=== PATIENT | male | born 1965 | race Caucasian/White ===

== ENCOUNTER → 2017-04-14 | Outpatient (CLI) | payer BC | LOC: OD 09:05 | PROVIDERS: ATTEND Student in an Organized Health Care Education/Training Program | DX: R63.4 Abnormal weight loss (principal) | CPT/HCPCS: 71020 ==

== ENCOUNTER 2017-05-11 08:42 | Day surgery (SDC) | payer BC ==
[~2017-05-11 08:42] MED LIST: PROPOFOL INJ 200 MG/20 ML VIAL IV ONE
[2017-05-11 10:03] VITALS: BP 114/69
--- NOTE | 2017-05-11 12:40 | Operative Report ---
Operative Report DATE OF SURGERY: 05/11/17 Operative Report: The risks, benefits and alternatives of the procedure including risks of bleeding, perforation requiring surgery are explained to the patient detail and informed consent was obtained. Patient was placed in the left, lateral decubital position. Timeout was called. Propofol medications administered. A rectal examination was done which did not reveal any masses, tears or fissures. An Olympus video scope was inserted in the patient's rectum. Scope was then gradually advanced all the way to the cecum. The cecum was identified by the usual anatomical landmarks including the ileocecal valve as well as the appendiceal office. Photodocumentation is obtained. Prep is good. The scope was then sequentially pulled back via the rest segments of the colon including the ascending colon, hepatic flexure, transverse colon, splenic flexure, descending colon and finally to the rectosigmoid portions of the colon. Retroflexion maneuver was performed. PREOPERATIVE DIAGNOSIS: Colorectal cancer screening POSTOPERATIVE DIAGNOSIS: Right-sided inflammation status post biopsy. Colon polyp, descending colon/sigmoid area status post snare polypectomy for removal; and retrieved. OPERATION: Colonoscopy with snare polypectomy. Colonoscopy with biopsy SURGEON: LEIGHANN GANDHI ANESTHESIA: LMAC TISSUE REMOVED OR ALTERED: Right side colon Specimens obtained to rule out microscopic, collagenous, lymphocytic colitis. Polyp removed and retrieved. COMPLICATIONS: None. ESTIMATED BLOOD LOSS: None. INTRAOPERATIVE FINDINGS: As described above. No masses, AVMs, diverticulosis noted. Mild internal hemorrhoids PROCEDURE: Patient tolerated the procedure well. No immediate postprocedure complications are noted. Patient discharged in good condition. Discharge date 05/11/2017. Discharge diet: Regular. Discharge activity: Regular. 2-3 week follow-up to discuss findings. 5 year surveillance colonoscopy. Patient is instructed to call the office or proceed to the emergency room should there be any further problems or questions. We will wait on biopsies.
== END 2017-05-11 09:55 | disposition home or self-care (01) ==
LOC: END 08:42
PROVIDERS: ATTEND Internal Medicine Gastroenterology
PROC: 0DBF8ZX Excision of Right Large Intestine, Via Natural or Artificial Opening Endoscopic, Diagnostic (ICD-10-PCS; principal; 2017-05-11 10:00)
PROC: 0DBN8ZX Excision of Sigmoid Colon, Via Natural or Artificial Opening Endoscopic, Diagnostic (ICD-10-PCS; 2017-05-11 10:00)
DX: Z12.11 Encounter for screening for malignant neoplasm of colon (principal); K63.5 Polyp of colon; K52.9 Noninfective gastroenteritis and colitis, unspecified; E78.5 Hyperlipidemia, unspecified; K21.9 Gastro-esophageal reflux disease without esophagitis; F10.21 Alcohol dependence, in remission; Z79.899 Other long term (current) drug therapy
CPT/HCPCS: 45380; 45385; 88305 ×2; J2704; 810

== ENCOUNTER → 2017-05-12 | Outpatient (CLI) | payer BC ==
--- NOTE | 2017-05-13 14:30 | RADIOLOGY REPORT (SQ) ---
EXAM DESCRIPTION: NM THYROID SCAN AND UPTAKE COMPLETED DATE/TIME: 05/13/2017 2:14 pm REASON FOR STUDY: THYROID NODULE COMPARISON: None. RADIONUCLIDE AND DOSE: 315 microcuries I-123. The route of agent administration: Intravenous ADDITIONAL DRUGS AND DOSES: None. TECHNIQUE: Iodine uptake was measured at 4 and 24 hours. Images of the neck were acquired. LIMITATIONS: None. FINDINGS: 4 HOUR UPTAKE RADIO-IODINE: 3.5%. Normal Range of 5-20% [facility] Normal Range of 5-15% [facility] Normal Range of 5-15% [facility] 24 HOUR UPTAKE RADIO-IODINE: 6.0%. Normal Range of 7-35% [facility] Normal Range of 8-35% [facility] Normal Range of 15-30% [facility] SCAN: There is heterogeneous uptake seen throughout the thyroid gland. OTHER: No other significant finding. IMPRESSION: Uptake values consistent hypothyroidism there is heterogeneous distribution of radiotrac er throughout the thyroid gland. TECHNICAL DOCUMENTATION: JOB ID: [id number] [employer]- All Rights Reserved
== END ==
LOC: RAD 05-04 14:27
PROVIDERS: ATTEND Student in an Organized Health Care Education/Training Program
DX: E04.1 Nontoxic single thyroid nodule (principal)
CPT/HCPCS: 78014; A9516

== ENCOUNTER 2018-02-02 09:26 | Emergency (ER) | payer BC, OTHER ==
[2018-02-02] MEDS ORDERED: NORMAL SALINE 1000 ML 1,000 ML IV ONE (09:44)
[2018-02-02] MEDS ORDERED: LORAZEPAM 1 MG TABLET PO ONE (09:45)
--- NOTE | 2018-02-02 09:49 | ER Document Report ---
ED Medical Screen (RME) - General Chief Complaint: Alcohol Withdrawl Stated Complaint: WEAKNESS Time Seen by Provider: 02/02/18 09:43 Notes: RME DISCLOSURE I have seen this patient as part of a Rapid Medical Evaluation and, if applicable, placed any initially appropriate orders. The patient will be seen and fully evaluated, including a full history and physical exam, by a provider ( in Main ED or Fast Track) when a room becomes available. 53-year-old male here with complaints of generalized weakness, multiple falls, and alcohol abuse ongoing for the past "many months". He has also had some seizures over the past 1 year but there have been no seizures in the past few months. He is here because "my ex- made me come here". There is no other specific reason he decided to come today. TRAVEL OUTSIDE OF THE [place] IN LAST 30 DAYS: No - Related Data Allergies/Adverse Reactions: No Known Allergies Allergy (Verified 02/02/18 09:27) Past Medical History - Past Medical History Cardiac Medical History: Denies: Hx Coronary Artery Disease, Hx Heart Attack, Hx Hypertension Pulmonary Medical History: Denies: Hx Asthma, Hx Bronchitis, Hx COPD, Hx Pneumonia Neurological Medical History: Reports: Hx Seizures - 2 YEARS AGO/D/T RUNNING OUT OF PTSD MEDS. Denies: Hx Cerebrovascular Accident Endocrine Medical History: Reports: Hx Hypothyroidism GI Medical History: Denies: Hx Hepatitis, Hx Hiatal Hernia, Hx Ulcer Musculoskeltal Medical History: Denies Hx Arthritis Psychiatric Medical History: Reports: Hx Post Traumatic Stress Disorder Infectious Medical History: Denies: Hx Hepatitis Past Surgical History: Reports: Hx Inguinal Hernia. Denies: Hx Open Heart Surgery, Hx Pacemaker - Immunizations Hx Diphtheria, Pertussis, Tetanus Vaccination: Yes Physical Exam - Vital signs Vitals: Temp Pulse Resp BP Pulse Ox 98.5 F 80 18 123/89 H 98 02/02/18 09:31 02/02/18 09:31 02/02/18 09:31 02/02/18 09:31 02/02/18 09:31 Course - Vital Signs Vital signs: Temp Pulse Resp BP Pulse Ox 98.5 F 80 18 123/89 H 98 02/02/18 09:31 02/02/18 09:31 02/02/18 09:31 02/02/18 09:31 02/02/18 09:31
[2018-02-02 10:21] LABS: HEMATOCRIT 50.7 % (37.9-51.0); HEMOGLOBIN 17.6 g/dL (13.5-17.0); MEAN CORPUSCULAR HEMOGLOBIN 38.7 pg (27.0-33.4); MEAN CORPUSCULAR HGB CONC 34.8 g/dL (32.0-36.0); PLATELET COUNT 219 10^3/uL (150-450); RED BLOOD COUNT 4.55 10^6/uL (4.35-5.55); RED CELL DISTRIBUTION WIDTH 13.7 % (11.5-14.0); WHITE BLOOD COUNT 6.4 10^3/uL (4.0-10.5)
[2018-02-02 10:30] LABS: MEAN CORPUSCULAR VOLUME 111 fl (80-97)
--- NOTE | 2018-02-02 10:46 | ER Document Report ---
ED General - General Chief Complaint: Alcohol Withdrawl Stated Complaint: WEAKNESS Time Seen by Provider: 02/02/18 09:43 Information source: Patient, Relative - "Estranged ex-" TRAVEL OUTSIDE OF THE [place] IN LAST 30 DAYS: No - HPI Patient complains to provider of: weakness Onset: Other - months Onset/Duration: Gradual, Worse Quality of pain: No pain Associated symptoms: None Exacerbated by: Denies Relieved by: Denies Similar symptoms previously: Yes Recently seen / treated by doctor: Yes - september-tested for ebstein johnson virus Notes: 53-year-old male presents to the emergency department being brought in by his estranged . Drinks vodka daily his last drink was this morning at 4 AM. When asked when he started drinking he stated "how long it by then alive". Patient has been through inpatient detox twice and has been sober approximately 3 months at a clip. states he last went January 2017 to inpatient rehab. 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 states he does not have a PMD as he is uninsured at this time- he canceled his insurance in October. He could go to the [facility], he just has not done the paperwork yet. Patient states that he has been increasingly weak over the last few months. He states today he fell and hit his TV. No head injury or loss of consciousness. - Related Data Allergies/Adverse Reactions: No Known Allergies Allergy (Verified 02/02/18 09:27) Past Medical History - General Information source: Patient, Relative - - Social History Smoking Status: Current Every Day Smoker Chew tobacco use (# tins/day): No Frequency of alcohol use: Heavy Drug Abuse: None Lives with: Alone Family History: Reviewed & Not Pertinent Patient has suicidal ideation: No Patient has homicidal ideation: No - Past Medical History Cardiac Medical History: Reports: None Denies: Hx Coronary Artery Disease, Hx Heart Attack, Hx Hypertension Pulmonary Medical History: Reports: None Denies: Hx Asthma, Hx Bronchitis, Hx COPD, Hx Pneumonia EENT Medical History: Reports: None Neurological Medical History: Reports: None, Hx Seizures - 2 YEARS AGO/D/T RUNNING OUT OF PTSD MEDS. Denies: Hx Cerebrovascular Accident Endocrine Medical History: Reports: None, Hx Hypothyroidism Renal/ Medical History: Reports: None. Denies: Hx Peritoneal Dialysis Malignancy Medical History: Reports None GI Medical History: Reports: None. Denies: Hx Hepatitis, Hx Hiatal Hernia, Hx Ulcer Musculoskeltal Medical History: Reports None, Denies Hx Arthritis Skin Medical History: Reports None Psychiatric Medical History: Reports: Hx Post Traumatic Stress Disorder Infectious Medical History: Denies: Hx Hepatitis Past Surgical History: Reports: Hx Inguinal Hernia. Denies: Hx Open Heart Surgery, Hx Pacemaker - Immunizations Hx Diphtheria, Pertussis, Tetanus Vaccination: Yes Review of Systems - Review of Systems Constitutional: No symptoms reported EENT: No symptoms reported Cardiovascular: No symptoms reported Respiratory: No symptoms reported Gastrointestinal: No symptoms reported Genitourinary: No symptoms reported Male Genitourinary: No symptoms reported Skin: No symptoms reported Hematologic/Lymphatic: No symptoms reported Neurological/Psychological: No symptoms reported Physical Exam - Vital signs Vitals: Temp Pulse Resp BP Pulse Ox 98.5 F 80 18 123/89 H 98 02/02/18 09:31 02/02/18 09:31 02/02/18 09:31 02/02/18 09:31 02/02/18 09:31 - Notes Notes: PHYSICAL EXAMINATION: GENERAL: Disheveled, chronically ill-appearing, no acute distress. HEAD: Atraumatic, normocephalic. EYES: Pupils equal round and reactive to light, extraocular movements intact, sclera anicteric, conjunctiva are normal. ENT: Nares patent, oropharynx clear without exudates. Moist mucous membranes. NECK: Normal range of motion, supple without lymphadenopathy LUNGS: Breath sounds clear to auscultation bilaterally and equal. No wheezes rales or rhonchi. HEART: Regular rate and rhythm without murmurs ABDOMEN: Soft, nontender, nondistended abdomen. No guarding, no rebound. No masses appreciated. Ventral wall here hernia easily reducible Musculoskeletal: Normal range of motion, no pitting or edema. No cyanosis. NEUROLOGICAL: Cranial nerves grossly intact. Normal speech, normal gait. Normal sensory, motor exams PSYCH: Normal mood, normal affect. SKIN: Warm, Dry, normal turgor, no rashes or lesions noted. Course - Re-evaluation Re-evalutation: 02/02/18 10:52 I did talk to the patient extensively about his reasons for being here in the emergency department. I directly wanted to know if he was here for rehab or detox. Patient states "I am here to figure out why I am weak". He will not address whether he would like to go to detox or not. I did tell the patient since he has not stated that he wants detox I will not pursue that avenue with him any longer. I will do a full workup to try and determine why he is weak. He states that his drinking is "another problem in itself". His estranged was in the room for the entire discussion. She often had more information to offer to me than the patient himself. At one point after discussing the patient 's desire for detox, he stated "that was an uncomfortable conversation to have in front of my ". Did apologize. I stated since you called her to bring you to the emergency department and she was in the room engaging in our discussion and answering questions, I felt that it was appropriate to discuss detox in front of her. I did apologize to the patient and the patient's . The patient's went to me and stated it was fine. I did ask the patient if at this time he wanted his to leave the room so I could continue the conversation with him. At this point he change the subject, not answering my question at all and stating "I had a full bowl of spaghetti last night that I cooked myself". 02/02/18 13:53 Patient admits he has not been taking his thyroid medication. I did go over the ramifications of not taking her thyroid replacement including decreased mentation, decreased energy, constipation, low heart rate, and the importance of taking his thyroid medication. Patient states he does have the pills at home. I told him he needed to take them daily for 6 weeks and then have his thyroid level rechecked. Patient verbalized understanding. He again did not tell me he wanted detox. Patient was anxious to have everything removed including his IV in the monitoring engineer so he can be discharged home. 02/02/18 14:02 Labs- All tests 24 hr 02/02/18 02/02/18 02/02/18 10:02 10:02 10:02 WBC 6.4 RBC 4.55 Hgb 17.6 H Hct 50.7 MCV 111 H MCH 38.7 H MCHC 34.8 RDW 13.7 Plt Count 219 Total Counted 100 Seg Neutrophils % Not Reportable Seg Neuts % (Manual) 52 Lymphocytes % Not Reportable Lymphocytes % (Manual) 39 Atypical Lymphs % 2 Monocytes % Not Reportable Monocytes % (Manual) 4 Eosinophils % Not Reportable Eosinophils % (Manual) 1 Basophils % Not Reportable Basophils % (Manual) 2 Absolute Neutrophils Not Reportable Abs Neuts (Manual) 3.3 Absolute Lymphocytes Not Reportable Abs Lymphs (Manual) 2.6 Absolute Monocytes Not Reportable Abs Monocytes (Manual) 0.3 Absolute Eosinophils Not Reportable Absolute Eos (Manual) 0.1 Absolute Basophils Not Reportable Abs Basophils (Manual) 0.1 Toxic Granulation SLIGHT Platelet Comment ADEQUATE Macrocytosis 3+ Sodium Cancelled Potassium Cancelled Chloride Cancelled Carbon Dioxide Cancelled Anion Gap Cancelled BUN Cancelled Creatinine Cancelled Est GFR ( Amer) Cancelled Est GFR (Non-Af Amer) Cancelled Glucose Cancelled Calcium Cancelled Phosphorus Cancelled Magnesium Cancelled Total Bilirubin Cancelled Direct Bilirubin Cancelled Neonat Total Bilirubin Cancelled Neonat Direct Bilirubin Cancelled Neonat Indirect Bili Cancelled AST Cancelled ALT Cancelled Alkaline Phosphatase Cancelled Creatine Kinase CK-MB (CK-2) Troponin I Total Protein Cancelled Albumin Cancelled Lipase Cancelled TSH 02/02/18 02/02/18 02/02/18 11:27 11:27 11:27 WBC RBC Hgb Hct MCV MCH MCHC RDW Plt Count Total Counted Seg Neutrophils % Seg Neuts % (Manual) Lymphocytes % Lymphocytes % (Manual) Atypical Lymphs % Monocytes % Monocytes % (Manual) Eosinophils % Eosinophils % (Manual) Basophils % Basophils % (Manual) Absolute Neutrophils Abs Neuts (Manual) Absolute Lymphocytes Abs Lymphs (Manual) Absolute Monocytes Abs Monocytes (Manual) Absolute Eosinophils Absolute Eos (Manual) Absolute Basophils Abs Basophils (Manual) Toxic Granulation Platelet Comment Macrocytosis Sodium 146.1 H Potassium 4.3 Chloride 108 H Carbon Dioxide 26 Anion Gap 12 BUN 5 L Creatinine 0.66 Est GFR ( Amer) > 60 Est GFR (Non-Af Amer) > 60 Glucose 80 Calcium 9.0 Phosphorus 3.6 Magnesium 1.8 Total Bilirubin 0.3 Direct Bilirubin 0.2 Neonat Total Bilirubin Not Reportable Neonat Direct Bilirubin Not Reportable Neonat Indirect Bili Not Reportable AST 69 H ALT 50 Alkaline Phosphatase 51 Creatine Kinase 50 L CK-MB (CK-2) 0.67 Troponin I < 0.012 Total Protein 6.5 Albumin 4.2 Lipase 110.1 TSH 48.50 H - Vital Signs Vital signs: Temp Pulse Resp BP Pulse Ox 98.5 F 80 18 123/89 H 98 02/02/18 09:31 02/02/18 09:31 02/02/18 09:31 02/02/18 09:31 02/02/18 09:31 - Laboratory Result Diagrams: 02/02/18 10:02 02/02/18 11:27 Laboratory results interpreted by me: 02/02/18 02/02/18 02/02/18 10:02 11:27 11:27 Hgb 17.6 H MCV 111 H MCH 38.7 H Sodium 146.1 H Chloride 108 H BUN 5 L AST 69 H Creatine Kinase 50 L TSH 48.50 H - EKG Interpretation by Me EKG shows normal: Sinus rhythm Heart block present: 1st Degree Discharge - Discharge Clinical Impression: Hypothyroidism determined by thyroid function test Disposition: HOME, SELF-CARE Instructions: Chronic Alcoholism ([facility]), Hypothyroidism ([facility]) Additional Instructions: Follow up with your physician tomorrow for further care or return to the ED IMMEDIATELY if symptoms worsen or new concerns occur. If you cannot afford to follow up with your primary care physician a list of low cost clinics have been provided at the end of your discharge papers as well. Please take your levothyroxine for 6 weeks on a daily basis. At 6 weeks please go to your primary medical doctor and have your thyroid hormone blood levels rechecked. Referrals: [facility] [Provider Group] - Follow up as needed
[2018-02-02 10:48] LABS: ABSOLUTE LYMPHOCYTES# (MANUAL) 2.6 10^3/uL (0.5-4.7); ABSOLUTE MONOCYTES # (MANUAL) 0.3 10^3/uL (0.1-1.4); ABSOLUTE NEUTROPHILS# (MANUAL) 3.3 10^3/uL (1.7-8.2); BASOPHILS % (MANUAL) 2 % (0-2); EOSINOPHILS % (MANUAL) 1 % (0-6); LYMPHOCYTES % (MANUAL) 39 % (13-45); MONOCYTES % (MANUAL) 4 % (3-13); PLATELET COMMENT ADEQUATE; SEGMENTED NEUTROPHILS % (MAN) 52 % (42-78); TOTAL CELLS COUNTED 100; TOXIC GRANULATION SLIGHT
[2018-02-02] MEDS ORDERED: MULTIVITAMIN TABLET PO ONE (11:47)
[2018-02-02] MEDS ORDERED: THIAMINE HCL 100 MG TABLET PO ONE (11:47)
[2018-02-02] MEDS ORDERED: FOLIC ACID 1 MG TABLET PO ONE (11:47)
[2018-02-02 12:14] LABS: ALANINE AMINOTRANSFERASE 50 U/L (21-72); ALBUMIN 4.2 g/dL (3.5-5.0); ALKALINE PHOSPHATASE 51 U/L (38-126); ANION GAP 12 (5-19); ASPARTATE AMINO TRANSFERASE 69 U/L (17-59); BILIRUBIN,DIRECT 0.2 mg/dL (0.0-0.4); BILIRUBIN,TOTAL 0.3 mg/dL (0.2-1.3); BLOOD UREA NITROGEN 5 mg/dL (7-20); CARBON DIOXIDE 26 mmol/L (22-30); CHLORIDE 108 mmol/L (98-107); CREATINE KINASE 50 U/L (55-170); GLUCOSE 80 mg/dL (75-110); LIPASE 110.1 U/L (23-300); PHOSPHORUS 3.6 mg/dL (2.5-4.5); POTASSIUM 4.3 mmol/L (3.6-5.0); SODIUM 146.1 mmol/L (137-145); TOTAL PROTEIN 6.5 g/dL (6.3-8.2)
[2018-02-02 12:18] LABS: CREATINE KINASE MB 0.67 ng/mL (<4.55); TROPONIN I < 0.012 ng/mL
[2018-02-02 14:05] VITALS: BP 131/92
--- NOTE | 2018-02-02 21:22 | EKG REPORT ---
SEVERITY:- ABNORMAL ECG - SINUS RHYTHM FIRST DEGREE AV BLOCK BORDERLINE T WAVE ABNORMALITIES : Confirmed by: Sweetie Vega 02-Feb-2018 21:22:14
[2018-02-03 13:25] LABS: PATH REVIEW PATHOLOGIST REVIEWED
== END 2018-02-02 14:05 | disposition home or self-care (01) ==
LOC: ER 09:26
DX: E03.9 Hypothyroidism, unspecified (principal); T38.1X6A Underdosing of thyroid hormones and substitutes, initial encounter; Z91.128 Patient's intentional underdosing of medication regimen for other reason; Z91.14 Patient's other noncompliance with medication regimen; I44.0 Atrioventricular block, first degree; R53.1 Weakness; F17.200 Nicotine dependence, unspecified, uncomplicated
CPT/HCPCS: 93005; 99285; 96360; 36415; 82553; 82550; 83690; 83735; 84100; 84443; 85025; 80053; 84484; 93010; J7030

== ENCOUNTER 2018-05-02 00:11 | Emergency (ER) | payer OTHER ==
[2018-05-02] MEDS ORDERED: DIPH/PERTUSS(ACELL)/TETANUS VAC/PF 0.5 ML SYR (>=10YO) IM ONE (00:26)
[2018-05-02] MEDS ORDERED: ONDANSETRON 4 MG TAB.RAPDIS PO ONE (00:26)
--- NOTE | 2018-05-02 00:34 | ER Document Report ---
ED General - General Stated Complaint: FALL,HEAD PAIN Time Seen by Provider: 05/02/18 00:26 Cannot obtain history due to: Intoxicated, Altered mental status Notes: Patient is a 53-year-old male who presents by EMS after apparently being found bottom of steps. Neighbors apparently called EMS who states that initially the patient was very confused, would not answer any other questions. A c-collar was placed he was subsequently transported to the hospital. At time of arrival the patient can tell me his name, he knows that we are in [facility] and that we are at the hospital but does not know any other details about what happened today. He does admit to heavy alcohol use today. He states he hurts "everywhere". TRAVEL OUTSIDE OF THE [place] IN LAST 30 DAYS: No - Related Data Allergies/Adverse Reactions: No Known Allergies Allergy (Verified 02/02/18 09:27) Past Medical History - General Information source: Patient, Emergency Med Personnel - Social History Smoking Status: Current Every Day Smoker Frequency of alcohol use: Heavy Drug Abuse: None Lives with: Alone Family History: Reviewed & Not Pertinent - Past Medical History Cardiac Medical History: Denies: Hx Coronary Artery Disease, Hx Heart Attack, Hx Hypertension Pulmonary Medical History: Denies: Hx Asthma, Hx Bronchitis, Hx COPD, Hx Pneumonia Neurological Medical History: Reports: Hx Seizures - 2 YEARS AGO/D/T RUNNING OUT OF PTSD MEDS. Denies: Hx Cerebrovascular Accident Endocrine Medical History: Reports: Hx Hypothyroidism Renal/ Medical History: Denies: Hx Peritoneal Dialysis GI Medical History: Denies: Hx Hepatitis, Hx Hiatal Hernia, Hx Ulcer Musculoskeltal Medical History: Denies Hx Arthritis Psychiatric Medical History: Reports: Hx Post Traumatic Stress Disorder Infectious Medical History: Denies: Hx Hepatitis Past Surgical History: Reports: Hx Inguinal Hernia. Denies: Hx Open Heart Surgery, Hx Pacemaker - Immunizations Hx Diphtheria, Pertussis, Tetanus Vaccination: Yes Review of Systems - Review of Systems Notes: Constitutional: Negative for fever. Eyes: Negative for visual changes. ENT: Negative for facial injury Cardiovascular: Positive for chest injury. Respiratory: Negative for shortness of breath. Gastrointestinal: Negative for abdominal injury. Genitourinary: Negative for genital injury Musculoskeletal: Positive for left shoulder injury Skin: Positive for laceration/abrasions. Neurological: Positive for head injury. Physical Exam - Vital signs Vitals: Temp 97.8 F 05/02/18 00:11 Interpretation: Hypertensive Notes: PHYSICAL EXAMINATION: GENERAL: Intoxicated, initial GCS of 15. Smells strongly of alcohol. HEAD: Right posterior scalp hematoma. No additional focal trauma to the scalp. EYES: Pupils equal round and reactive to light, extraocular movements intact, sclera anicteric, conjunctiva are normal. ENT: nares patent, no oral pharyngeal trauma. No hemotympanum, no Bryan's sign , no raccoon eyes. NECK: No midline cervical spine tenderness. Patient able to move their head to 45 bilaterally without any discomfort. LUNGS: Breath sounds clear to auscultation bilaterally and equal. No wheezes rales or rhonchi. HEART: Regular rate and rhythm without murmurs. CHEST WALL: Horizontal bruise over the central chest ABDOMEN: Soft, nontender, normoactive bowel sounds. No guarding, no rebound. No abdominal bruising EXTREMITIES: Normal range of motion, no pitting or edema. No long bone deformities. BACK: No midline spinal tenderness, step-offs, or deformities. NEUROLOGICAL: Face symmetric. Tongue protrudes midline. Extraocular motions intact. Pupils are 2 mm and equally reactive. Slurred speech. 5 out of 5 strength in both the distal and proximal upper and lower extremities bilaterally. Sensation is grossly intact throughout. PSYCH: Extremely intoxicated. Is able to state his name, where we are located but does not know the events that occurred tonight. SKIN: Warm, Dry, normal turgor, multiple abrasions over the right hand, right foot, right toes, right knee, and over the left shoulder. Course - Re-evaluation Re-evalutation: 05/02/18 00:34 Presentation of a well appearing elderly patient in no acute distress, vitals within normal limits after being found lying on the ground and is extremely intoxicated which is apparently his baseline per family. No focal neurologic deficits on exam, no evidence of basilar skull fracture on exam without evidence of hemotympanum, raccoon eyes, or periauricular hematoma. No papilledema. Patient is not on anticoagulation. GCS is 15. However, based on patient's intoxicated status and uncertain recollection of today's events a CT of the head has been obtained. Likewise, patient was unable to be clinically cleared due to intoxication and history by [place] cervical spine criteria. A CT of the cervical spine was also obtained. Patient has no focal deformities or limited range of motion in any joint space. He does however have a large abrasion and skin avulsion with associated hematoma over the left shoulder. There are also superficial abrasions over the right toes, multiple digits of the right hand, and the right knee without any obvious deformity or limited range of motion to the affected areas. Patient does also have a large horizontal line over his lower chest with associated abrasions to the area. A chest x-ray has been obtained. There is no evidence of abdominal trauma or bruising and patient denies any abdominal pain. Patient has no flank tenderness. 05/02/18 01:05 CT head does show a right sided subdural bleed as well as an acute subarachnoid hemorrhage. CT the cervical spine is noted to be normal. I discussed the results the radiologist on the phone. Patient is not apparently anticoagulated. No indication for prophylactic AEDs at this point. Patient remains without focal neurological deficit. Labs will be drawn. He will require transfer to a trauma center. [id number] have discussed this case with the trauma attending at [facility] Dr. Loreto Flowers who has accepted the patient. 05/02/18 01:18 Patient was reassessed. He is no longer responsive. This is a very abrupt change as the patient was awake and talking less than 5 minutes ago as I have informed him that we would need to transfer him to a tertiary facility. He has unequal pupils now, pinpoint on left, 4mm on right. GCS is currently 3. I immediately called for mannitol to the bedside. We will intubate the patient. He will be started on Keppra for seizure prophylaxis as his GCS is now less than 10 in the setting of a traumatic head bleed. I did also contact the accepting facility and spoke again with and updated her on the rapid deterioration of the patient. She is in agreement with her management plan. 05/02/18 01:26 Patient has been successfully intubated. Two-point of IV access are established. Mannitol is currently warming as apparently there is crystallization in the vials and pharmacy states that these must be cleared before the medication can be administered. 1500 mg of Keppra will be given. Patient will be hyperventilated and we will obtain an ABG now and in 30 minutes targeting a PCO2 between 30 and 35 mmHg. Patient was intubated using etomidate and succinylcholine to allow for ongoing neurologic examinations. 05/02/18 01:56 Repeat neurologic examination shows the patient has a cough and gag as he is now requiring sedation. He did not have any purposeful movements of the bilateral upper or lower x-rays including to noxious stimuli. Pupillary reflex is blunted bilaterally although is currently equal at 3 mm bilaterally. We are continuing to wait for the mannitol to be warmed although apparently there is another bag that we can use and I have asked that this be brought to the bedside is immediately. We are continuing to hyperventilate the patient currently. Air transport is apparently 15 minutes away. 05/02/18 0215 Air crew has arrived for transport. I have updated them on patient's neurologic exam which at this time point shows that his pupils continue to be equal and reactive bilaterally. Appropriate sedation on propofol. Vitals remain within acceptable limits at this time point. He is stable for transport at this time. - Vital Signs Vital signs: Temp Pulse Resp BP Pulse Ox 97.8 F 24 H 126/82 H 100 05/02/18 00:11 05/02/18 02:06 05/02/18 02:06 05/02/18 02:15 - Laboratory Result Diagrams: 05/02/18 01:25 05/02/18 01:25 Laboratory results interpreted by me: 05/02/18 05/02/18 05/02/18 01:25 01:25 01:40 WBC 12.0 H MCV 107 H MCH 36.6 H RDW 14.6 H Plt Count 138 L ABG pO2 144.7 H ABG Total CO2 22.1 L ABG O2 Saturation 98.9 H Potassium 3.2 L Anion Gap 21 H Total Bilirubin 1.5 H Direct Bilirubin 0.5 H AST 132 H Serum Alcohol 388 H* - Diagnostic Test Radiology reviewed: Image reviewed, Reports reviewed Radiology results interpreted by me: 05/02/18 03:37 CT head: Large right subdural hematoma with leftward midline shift. There is also a frontal lobe subarachnoid hemorrhage Chest x-ray 1: No acute fractures or dislocations. No evidence of pneumothorax or pulmonary contusion Postintubation chest x-ray: ET tube in appropriate position Procedures - Intubation Orotracheal Airway evaluation: Normal anatomy Mallampati Classification: Class 2 Medications: Etomidate, Succinylcholine Intubation method: Orotracheal Blade type: Liz Blade size: 4 ETT size: 8.0 ETT secured at: Lips ETT secured at (cm): 23 Breath Sounds after Intubation: Equal End tidal CO2 confirmed: Yes Ventilator settings: SIMV Tidal volume: 500 FiO2: 35 Respirations: 22 PEEP: 5 Post Intubation Xray: Yes Intubation Complications: No complications Critical Care Note - Critical Care Note Total time excluding time spent on procedures (mins): 76 Comments: Critical care time spent obtaining history from patient or surrogate, discussions with consultants, development of treatment plan with patient or surrogate, evaluation of patient's response to treatment, examination of patient , ordering and performing treatments and interventions, ordering and review of laboratory studies, re-evaluation of patient's condition, ordering and review of radiographic studies and review of old charts Discharge - Discharge Clinical Impression: Subdural hematoma, Subarachnoid hemorrhage, Abrasions of multiple sites Coma Qualifiers: Coma depth: Carla coma 3-8 Coma timing: at arrival to emergency department Qualified Code(s): R40.2432 - Carla coma scale score 3-8, at arrival to emergency department Fall Qualifiers: Encounter type: initial encounter Qualified Code(s): W19.XXXA - Unspecified fall, initial encounter Alcohol intoxication Qualifiers: Complication of substance-induced condition: with unspecified complication Qualified Code(s): F10.929 - Alcohol use, unspecified with intoxication, unspecified Injury of left shoulder Qualifiers: Encounter type: initial encounter Qualified Code(s): S49.92XA - Unspecified injury of left shoulder and upper arm, initial encounter Head trauma Qualifiers: Encounter type: initial encounter Qualified Code(s): S09.90XA - Unspecified injury of head, initial encounter Condition: Critical Disposition: [facility]
--- NOTE | 2018-05-02 01:08 | RADIOLOGY REPORT (SQ) ---
PROCEDURE: CLINICAL HISTORY: 53 years Male trauma, fall , intoxicated and found unresponsive at the bottom of stairs COMPARISON: None. TECHNIQUE: Contiguous axial CT images obtained through the brain without IV contrast. This exam was performed according to our department optimization program which includes automated exposure control, adjustment of the mA and/or kv according to patient size and/or use of iterative reconstruction technique. FINDINGS: There is a right convexity subdural hematoma which measures 1.4 cm. There appears to be some hemorrhage of varying age which may reflect acute and hyperacute hemorrhage. There is sulcal and ventricular effacement. There is right to left shift measuring 8 mm. No significant dilatation of the temporal horns. There appears to be some subarachnoid hemorrhage in the suprasellar cistern and in the inferior frontal lobes bilaterally. Small amount of subarachnoid hemorrhage is also present at the vertex. There is soft tissue hematoma over the occiput Mucosal thickening and fluid in the maxillary sinus on the left. IMPRESSION: There is an acute/hyperacute subdural hematoma over the right convexity measuring 1.4 cm with resultant sulcal and ventricular effacement and moderate right to left shift measuring 8 mm There is a small amount of edema in the inferior frontal lobes bilaterally with a small amount of subarachnoid hemorrhage in the inferior frontal lobes and in the adjacent suprasellar cistern as well as a small amount of hemorrhage at the right vertex Subgaleal hematoma posteriorly to the left of the midline Findings were telephoned to Dr. Felder at 12:05 PM central time.
[2018-05-02] MEDS ORDERED: THIAMINE HCL 100 MG, FOLIC ACID 1 MG in NORMAL SALINE 250 ML IV ONE (01:09)
[2018-05-02] MEDS ORDERED: ONDANSETRON HCL INJ/PF 4 MG/2 ML SDV IV ONE (01:09)
[2018-05-02] MEDS ORDERED: RINGERS SOLUTION,LACTATED 1,000 ML IV ONE (01:09)
--- NOTE | 2018-05-02 01:11 | RADIOLOGY REPORT (SQ) ---
PROCEDURE: CLINICAL HISTORY: 53 years Male trauma, fall COMPARISON: None. TECHNIQUE: Contiguous axial images obtained through the cervical spine without IV contrast. Coronal and sagittal reformatted images obtained. This exam was performed according to our department optimization program which includes automated exposure control, adjustment of the mA and/or kv according to patient size and/or use of iterative reconstruction technique. FINDINGS: Vertebral body alignment is unremarkable. No acute fractures. Generalized bulging of the disc at C3-4 with bilateral neural foraminal narrowing. Mild disc bulge at C4-5 with mild central canal stenosis. C5-6: Posterior disc bulge and osteophytosis with mild central canal stenosis. There is moderate left and severe right neural foraminal narrowing. C6-7: Generalized bulging of the disc with mild central canal stenosis and severe bilateral neural foraminal stenosis. IMPRESSION: No acute cervical spinal fracture is identified. Multilevel degenerative change
--- NOTE | 2018-05-02 01:22 | RADIOLOGY REPORT (SQ) ---
EXAM DESCRIPTION: XR SHOULDER 2 OR MORE VIEWS COMPLETED DATE/TME: 05/02/2018 00:26 CLINICAL HISTORY: 53 years, Male, trauma, fall COMPARISON: None. FINDINGS: 3 views of the left shoulder. No acute fracture or dislocation. Degenerative change of the acromioclavicular joint. No acute abnormalities of the left hemithorax identified. IMPRESSION: No acute fracture or dislocation. 2010 [employer]- All Rights Reserved
--- NOTE | 2018-05-02 01:23 | RADIOLOGY REPORT (SQ) ---
EXAM DESCRIPTION: Single view of the chest CLINICAL HISTORY: trauma, fall COMPARISON: None. FINDINGS: Single frontal view of the chest. Atherosclerotic calcification aortic arch. Left costophrenic angle not identified on this study. No consolidation, pneumothorax, or pleural effusion. No displaced rib fractures identified. Upper abdominal soft tissues are unremarkable. IMPRESSION: 1. No acute pulmonary process identified.
[2018-05-02] MEDS ORDERED: MANNITOL 25% INJ 12.5 GM/50 ML VIAL IV ONE ×2 (01:25→01:31)
[2018-05-02 01:36] LABS: ABSOLUTE BASOPHILS # (AUTO) 0.1 10^3/uL (0.0-0.2); ABSOLUTE EOSINOPHILS # (AUTO) 0.1 10^3/uL (0.0-0.6); ABSOLUTE LYMPHOCYTES (AUTO) 2.8 10^3/uL (0.5-4.7); EOSINOPHILS % (AUTO) 0.6 % (0-6); HEMATOCRIT 47.8 % (37.9-51.0); HEMOGLOBIN 16.4 g/dL (13.5-17.0); LYMPHOCYTES % (AUTO) 23.5 % (13-45); MEAN CORPUSCULAR HEMOGLOBIN 36.6 pg (27.0-33.4); MEAN CORPUSCULAR HGB CONC 34.3 g/dL (32.0-36.0); MEAN CORPUSCULAR VOLUME 107 fl (80-97); PLATELET COUNT 138 10^3/uL (150-450); RED BLOOD COUNT 4.48 10^6/uL (4.35-5.55); RED CELL DISTRIBUTION WIDTH 14.6 % (11.5-14.0); SEGMENTED NEUTROPHILS % (AUTO) 66.9 % (42-78); TOTAL CELLS COUNTED % (AUTO) 100 %
[2018-05-02 01:46] LABS: ALANINE AMINOTRANSFERASE 63 U/L (21-72); ALBUMIN 4.6 g/dL (3.5-5.0); ALKALINE PHOSPHATASE 74 U/L (38-126); ASPARTATE AMINO TRANSFERASE 132 U/L (17-59); BILIRUBIN,DIRECT 0.5 mg/dL (0.0-0.4); BILIRUBIN,TOTAL 1.5 mg/dL (0.2-1.3); BLOOD UREA NITROGEN 10 mg/dL (7-20); CARBON DIOXIDE 22 mmol/L (22-30); CHLORIDE 100 mmol/L (98-107); GLUCOSE 104 mg/dL (75-110); POTASSIUM 3.2 mmol/L (3.6-5.0); TOTAL PROTEIN 7.6 g/dL (6.3-8.2)
[2018-05-02 01:50] LABS: SODIUM 142.9 mmol/L (137-145)
[2018-05-02] MEDS ORDERED: PROPOFOL 1,000 MG/100 ML INFUS..BTL IV PRN (01:50)
[2018-05-02] MEDS ORDERED: PROPOFOL 1,000 MG/100 ML INFUS..BTL IV ONE (01:51)
[2018-05-02 01:56] LABS: ANION GAP 21 (5-19)
[2018-05-02 01:58] LABS: ALCOHOL 388 mg/dL (NONE DETECTED)
[2018-05-02 02:03] LABS: ARTERIAL BLOOD BASE EXCESS -3.2 mmol/L; ARTERIAL BLOOD FIO2 100%; ARTERIAL BLOOD H2CO3 1.07 mmol/L (1.05-1.35); ARTERIAL BLOOD O2 SATURATION 98.9 % (94-98); ARTERIAL BLOOD PCO2 35.6 mmHg (35-45); ARTERIAL BLOOD PH 7.39 (7.35-7.45); ARTERIAL BLOOD PO2 144.7 mmHg (80-100); ARTERIAL BLOOD TOTAL CO2 22.1 mmol/L (23-27)
[2018-05-02] MEDS ORDERED: MANNITOL 500 ML IV ONE (02:04)
--- NOTE | 2018-05-02 02:09 | RADIOLOGY REPORT (SQ) ---
EXAM DESCRIPTION: Single view of the chest CLINICAL HISTORY: post-intubation COMPARISON: None. FINDINGS: Single frontal view of the chest. Endotracheal tube with tip 5 cm above the belkis. NG tube with tip below the diaphragm. Leads overlie the chest. The cardiomediastinal silhouette has normal size and contour. No consolidation, pneumothorax, or pleural effusion. No displaced rib fractures identified. Upper abdominal soft tissues are unremarkable. IMPRESSION: 1. Endotracheal tube and NG tube in appropriate position.
[2018-05-02] MEDS ORDERED: ETOMIDATE INJ/PF 20 MG/10 ML SDV IV ONE (03:49)
[2018-05-02] MEDS ORDERED: SUCCINYLCHOLINE CHLORIDE INJ 200 MG/10 ML VIAL IV ONE (03:49)
[2018-05-02 04:11] VITALS: BP 110/76
[2018-05-02] MEDS ORDERED: SUCCINYLCHOLINE CHLORIDE INJ 200 MG/10 ML VIAL ONE (16:35)
== END 2018-05-02 02:24 | disposition short-term general hospital (02) ==
LOC: ER 00:11
PROC: 0BH17EZ Insertion of Endotracheal Airway into Trachea, Via Natural or Artificial Opening (ICD-10-PCS; principal; 2018-05-02)
DX: S06.5X9A Traumatic subdural hemorrhage with loss of consciousness of unspecified duration, initial encounter (principal); R40.2432 Glasgow coma scale score 3-8, at arrival to emergency department; S60.511A Abrasion of right hand, initial encounter; S90.811A Abrasion, right foot, initial encounter; S80.211A Abrasion, right knee, initial encounter; S40.212A Abrasion of left shoulder, initial encounter; S49.92XA Unspecified injury of left shoulder and upper arm, initial encounter; W10.9XXA Fall (on) (from) unspecified stairs and steps, initial encounter; Y92.009 Unspecified place in unspecified non-institutional (private) residence as the place of occurrence of the external cause
CPT/HCPCS: 99291; 99292; 96374; 36415; 80307; 82803; 85025; 80053; 71045; 73030; 70450; 72125; 31500; J2704; J2150; J0330; 94660